=== PATIENT | male | born 1990 | race Caucasian/White ===

== ENCOUNTER 2020-02-04 16:22 | Outpatient (REF) | payer OTHER, SELFPAY | END 2020-02-04 16:23 | disposition home or self-care (01) | LOC: HO.LAB 16:22 | PROVIDERS: PCP Internal Medicine; Visit Provider Internal Medicine | DX: Z20.828 Contact with and (suspected) exposure to other viral communicable diseases (principal) | CPT/HCPCS: C9803; U0003 ==

== ENCOUNTER 2022-11-12 10:27 | Outpatient (AMB) | payer OTHER, SELFPAY ==
--- NOTE | 2022-11-12 10:31 | A.OFFPC_ITS ---
Vital Signs 11/12/22 10:42 Height 5 ft 6.5 in Weight 143 lb 4 oz BMI 22.8 BP 100/66 Blood Pressure Location Lt brachial Position Sitting Pulse 85 Pulse Source Pulse Oximeter Pulse Oximetry (%) 97 Oxygen Delivery Method Room Air Intake Visit Reasons: Re-Establish Care ( Depression medication) Intake Note: Patient is here today to re-establish care. Requesting for depression medication Land Surveyor Required: No School Physical Therapist: Not Required per policy Accompanied by: Self / Same As Patient Allergies No Known Allergies Allergy (Verified 11/12/22 10:58) Medication List - Last Reconciled 11/12/22 by Arben Garza PA-C sertraline 100 mg PO DAILY 90 days Tobacco use date assessed: 11/12/22 Dental Screening Dental Screen Date: 11/12/22 Did you have a dental visit in the last 12 months?: No Did you have a dental problem in the last 6 months where you did not have access to dental care?: No Was dental information given to patient?: No HPI Re-Establish Care ( Depression medication) HPI Details Patient is a 32-year-old male here today to reestablish care. Patient has a past medical history significant for generalized anxiety disorder major depressive disorder. Was on sertraline 100 mg with good effect on his mental health. [facility] Surgical History History of hernia surgery Family History Other Mental health disorder Substance use disorder Social History Housing: Apartment Alcohol intake: never Patient Tobacco Use Status: Current everyday Tobacco user Tobacco use type: Cigarette Cigarette Packs Per Day: 0.5 Cigarettes Per Day: 10 e-Cigarette/Vaping Use: Never Used Second Hand Smoke Exposure: Yes service: No Current occupational status: employed Current occupation: [employer] Cognitive needs: No Hearing needs: No Vision needs: Yes (glasses) Questionnaire PHQ-9 Over the last 2 weeks, how often have you been bothered by any of the following problems? 1. Little interest or pleasure in doing things: more than half the days 2. Feeling down, depressed, or hopeless: more than half the days 3. Trouble falling or staying asleep, or sleeping too much: nearly every day 4. Feeling tired or having little energy: more than half the days 5. Poor appetite or overeating: several days 6. Feeling bad about yourself - or that you are a failure or have let yourself or your family down: several days 7. Trouble concentrating on things, such as reading the newspaper or watching television: several days 8. Moving or speaking so slowly that other people could have noticed. Or the opposite - being so fidgety or restless that you have been moving around a lot more than usual: several days 9. Thoughts that you would be better off or of hurting yourself in some way: several days Total score: 14 Depression Screening Interpretation: Positive 81410 - PHQ-9 Billing: Yes Source: Developed by Drs. Bhaskar Dawkins, Radha Polanco, Earle Callahan and colleagues, with an educational noemi from [employer]. Thrive Questionnaire Date Thrive assessed: 11/12/22 I am a: Patient What is your living situation today?: I have a steady place to live Within the past 12 months, did the food you bought not last and you didn't have the money to get more?: Never true Within the past 12 months, did you worry whether your food would run out before you got money to buy more?: Never true Do you have trouble paying for medicines?: No Do you have trouble getting transportation to medical appointments?: No Do you have trouble paying your heating and electricity bill?: No Do you have trouble taking care of your child, family member or friend?: No Do you have trouble with day-to-day activities such as bathing, preparing meals, shopping, managing finances, etc.?: No Are you currently unemployed and looking for a job?: No Are you interested in more education?: No Currently or been in a relationship where the following occur: no concerns reported AUDIT C Alcohol Use Questionnaire (AUDIT-C) 1. How often do you have a drink containing alcohol?: Never Total Score: 0 PAIGE-7 AMB Questionnaire PAIGE-7 Date PAIGE - 7 assessed: 11/12/22 Feeling nervous, anxious, or on edge: 2 = More than half the days Not being able to stop or control worryin = More than half the days Worrying too much about different things: 2 = More than half the days Trouble relaxin = Several days Being so restless that it is hard to sit still: 1 = Several days Becoming easily annoyed or irritable: 1 = Several days Feeling afraid as if something awful might happen: 2 = More than half the days Total PAIGE-7 score (0-4 normal; 5-9 mild; 10-14 moderate; 15-21 severe): 11 Source: Developed by Drs. Bhaskar Dawkins, Radha Polanco, Earle Callahan and colleagues, with an educational noemi from [employer]. PAIGE-7 Assessment Billing PAIGE-7 Assessment Tool: PAIGE-7 Assessment 30893 Physical exam (Primary Care) Vital Signs: Last Vital Signs Pulse 85 11/12/22 10:42 BP 100/66 11/12/22 10:42 Pulse Ox 97 11/12/22 10:42 Oxygen Delivery Method Room Air 11/12/22 10:42 BMI result Body Mass Index 22.8 Tobacco/Smoking Status: Tobacco use Status Tobacco use date assessed 11/12/22 11/12/22 10:33 Patient Tobacco Use Status Current everyday Tobacco 11/12/22 10:51 Tobacco use type Cigarette 11/12/22 10:51 e-Cigarette/Vaping Use Never Used 11/12/22 10:47 Are you ready to quit: No Tobacco cessation counseling provided: Yes Relapse Prevention: discussed the importance of a supportive environment, discussed negative mood or depression after quitting and discussed dietary, exercise and/or lifestyle changes Number of minutes spent counselin CPT code: 95120 - 4-10 Minutes PHQ-9: PHQ-9 Score PHQ-9: Total score 14 11/12/22 10:51 Depression Screening Interpretation: Positive Thrive Assessment: Date of Thrive Assessment Date Thrive assessed 11/12/22 11/12/22 10:33 Currently or been in a relationship where the following occur: no concerns reported Assessment and Plan Assessment & Plan (1) PAIGE (generalized anxiety disorder): Code(s): F41.1 - Generalized anxiety disorder Plan: Patient's PAIGE-7 score positive for moderate anxiety which has been existing condition for him. He also suffers from major depressive disorder. He would like to get set up with a mental health therapist and perhaps a psychiatrist in the near future. He would like to restart SSRI therapy. (2) Screening for diabetes mellitus (DM): Code(s): Z13.1 - Encounter for screening for diabetes mellitus (3) MDD (major depressive disorder), recurrent episode, moderate: Code(s): F33.1 - Major depressive disorder, recurrent, moderate Plan: Patient's PHQ-9 score positive for moderate depression which has been existing condition for him. He would like to restart SSRI therapy and be established with a mental health therapist. (4) Tobacco dependence: Code(s): F17.200 - Nicotine dependence, unspecified, uncomplicated Plan: Patient does understand he needs to quit smoking. Offered nicotine replacement though declines. Will work on cutting down his smoking on his own. Orders: Orders Comprehensive [place]. Panel Fast Today Z13.1 - Encounter for screening for diabetes mellitus Referrals Counseling Referral F41.1 - Generalized anxiety disorder Medications: Refilled sertraline 100 mg PO DAILY 90 days 90 tabs 2RF F41.1 - Generalized anxiety disorder Coding Level of Care Code Est Pt Level 4 (35507) Diagnoses PAIGE (generalized anxiety disorder) F41.1 Screening for diabetes mellitus (DM) Z13.1 MDD (major depressive disorder), recurrent episode, moderate F33.1 Tobacco dependence F17.200 Additional Codes PAIGE-7 Assessment Billing - PAIGE-7 Assessment Tool: PAIGE-7 Assessment 06693 ([id number]) Vital Signs *Quality* - CPT code: 42997 - 4-10 Minutes ([id number])
[2022-11-12 10:42] VITALS: BP 100/66; PULSE 85; O2SAT 97; BMI 22.8
== END 2022-11-12 11:21 | disposition home or self-care (01) ==
PROVIDERS: PCP Physician Assistant; Visit Provider Physician Assistant
DX: F41.1 Generalized anxiety disorder (principal); Z13.1 Encounter for screening for diabetes mellitus; F33.1 Major depressive disorder, recurrent, moderate; F17.210 Nicotine dependence, cigarettes, uncomplicated
CPT/HCPCS: 99214; 99406

== ENCOUNTER 2023-04-22 10:20 | Outpatient (AMB) | payer OTHER, SELFPAY ==
--- NOTE | 2023-04-22 10:16 | A.OFFPC_ITS ---
Intake Visit Reasons: 5 month f/u Package Maker Required: No Accompanied by: Self / Same As Patient Allergies No Known Allergies Allergy (Verified 04/22/23 10:43) Medication List - Last Reconciled 04/22/23 by Arben Garza PA-C sertraline 100 mg PO DAILY 90 days Tobacco use date assessed: 04/22/23 Dental Screening Dental Screen Date: 04/22/23 Did you have a dental visit in the last 12 months?: No Did you have a dental problem in the last 6 months where you did not have access to dental care?: No Was dental information given to patient?: Patient has dentist HPI 5 month f/u HPI Details Patient is a 32-year-old male being evaluated today via telephone only. Patient has a past medical history significant for major depressive disorder, generalized anxiety disorder and tobacco dependency. .. Major depressive disorder: Has been better as of late without any medication. Still has the sertraline available to him and is considering taking the medication. He is still also considering mental health therapy. Anxiety: Same Concerns--> has been having some wrist soreness and crepitus. No reports of major trauma to his wrist.. This could be attributed to his work. He will try to stabilize with a wrist splint at night and use of anti-inflammatory as needed. .. Tobacco dependency: Still admits to smoking a pack a day. He does understand he needs to quit and is somewhat interested in starting nicotine patches. [facility] Surgical History History of hernia surgery Family History Other Mental health disorder Substance use disorder Social History Housing: Apartment Alcohol intake: never Patient Tobacco Use Status: Current everyday Tobacco user Tobacco use type: Cigarette Cigarette Packs Per Day: 1 Cigarettes Per Day: 20 e-Cigarette/Vaping Use: Never Used Second Hand Smoke Exposure: Yes service: No Current occupational status: employed Current occupation: [employer] [place] Cognitive needs: No Hearing needs: No Vision needs: Yes (glasses) Questionnaire PHQ-9 Over the last 2 weeks, how often have you been bothered by any of the following problems? 1. Little interest or pleasure in doing things: not at all 2. Feeling down, depressed, or hopeless: not at all 3. Trouble falling or staying asleep, or sleeping too much: not at all 4. Feeling tired or having little energy: not at all 5. Poor appetite or overeating: not at all 6. Feeling bad about yourself - or that you are a failure or have let yourself or your family down: not at all 7. Trouble concentrating on things, such as reading the newspaper or watching television: not at all 8. Moving or speaking so slowly that other people could have noticed. Or the opposite - being so fidgety or restless that you have been moving around a lot more than usual: not at all 9. Thoughts that you would be better off or of hurting yourself in some way: not at all Total score: 0 Depression Screening Interpretation: Negative Depression Screening Done: Yes 61101 - PHQ-9 Billing: Yes Source: Developed by Drs. Bhaskar Dawkins, Radha Polanco, Earle Callahan and colleagues, with an educational noemi from [employer]. Thrive Questionnaire Date Thrive assessed: 04/22/23 I am a: Patient What is your living situation today?: I have a steady place to live Within the past 12 months, did the food you bought not last and you didn't have the money to get more?: Never true Within the past 12 months, did you worry whether your food would run out before you got money to buy more?: Never true Do you have trouble paying for medicines?: No Do you have trouble getting transportation to medical appointments?: No Do you have trouble paying your heating and electricity bill?: No Do you have trouble taking care of your child, family member or friend?: No Do you have trouble with day-to-day activities such as bathing, preparing meals, shopping, managing finances, etc.?: No Are you currently unemployed and looking for a job?: No Are you interested in more education?: No Please select the resources that you would like help with: None Currently or been in a relationship where the following occur: no concerns reported THRIVE Score: 0 AUDIT C Alcohol Use Questionnaire (AUDIT-C) 1. How often do you have a drink containing alcohol?: Monthly or less 2. How many drinks containing alcohol do you have on a typical day when you are drinking?: 1 or 2 3. How often do you have six or more drinks on one occasion?: Never Total Score: 1 PAIGE-7 AMB Questionnaire PAIGE-7 Date PAIGE - 7 assessed: 04/22/23 Feeling nervous, anxious, or on edge: 0 = Not at all Not being able to stop or control worryin = Not at all Worrying too much about different things: 0 = Not at all Trouble relaxin = Not at all Being so restless that it is hard to sit still: 0 = Not at all Becoming easily annoyed or irritable: 0 = Not at all Feeling afraid as if something awful might happen: 0 = Not at all Total PAIGE-7 score (0-4 normal; 5-9 mild; 10-14 moderate; 15-21 severe): 0 Source: Developed by Drs. Bhaskar Dawkins, Radha Polanco, Earle Callahan and colleagues, with an educational noemi from [employer]. PAIGE-7 Assessment Billing PAIGE-7 Assessment Tool: PAIGE-7 Assessment 20997 Review of Systems Const Denies headache(s) Eyes Denies loss of vision ENT Denies vertigo, Denies dizziness, Denies headache(s) and Denies sore throat Card Denies chest pain, Denies leg edema and Denies lightheadedness Resp Denies cough, Denies hemoptysis and Denies wheezing GI Denies abdominal pain, Denies melena, Denies constipation, Denies diarrhea and Denies vomiting Denies dysuria, Denies urinary frequency and Denies urinary urgency Musc Denies arthralgias, Denies joint swelling, Denies numbness and Denies tingling Neuro Denies behavioral changes, Denies vertigo, Denies dizziness, Denies headache(s), Denies loss of vision, Denies memory loss, Denies numbness and Denies tingling Psych Denies anxiety, Denies behavioral changes, Denies depression, Denies memory loss and Denies panic attacks Nader/Lymph Denies easy bleeding and Denies easy bruising Aller/Immun Denies wheezing Physical exam (Primary Care) Tobacco/Smoking Status: Tobacco use Status Tobacco use date assessed 04/22/23 04/22/23 10:19 Patient Tobacco Use Status Current everyday Tobacco 04/22/23 10:19 Tobacco use type Cigarette 04/22/23 10:19 e-Cigarette/Vaping Use Never Used 04/22/23 10:19 Are you ready to quit: No Tobacco cessation counseling provided: Yes Items discussed: Nicotine replacement and [employer] Relapse Prevention: discussed the importance of a supportive environment, discussed negative mood or depression after quitting, weight gain after smoking is common and discussed dietary, exercise and/or lifestyle changes Number of minutes spent counselin CPT code: 33270 - 4-10 Minutes PHQ-9: PHQ-9 Score PHQ-9: Total score 0 04/22/23 10:21 Depression Screening Interpretation: Negative Thrive Assessment: Date of Thrive Assessment Date Thrive assessed 04/22/23 04/22/23 10:19 Currently or been in a relationship where the following occur: no concerns reported Telehealth Telehealth Location of provider rendering services: practice address Location of patient: address on file Patient Identification confirmed using: Name, : Yes Telehealth method: voice only Patient verbally consented to treatment: Yes Patient verbally consented to billing insurance company: Yes Patient informed of any privacy concerns related to visit: Yes Minutes spent on Phone/Video with Pt.: 11 Assessment and Plan Assessment & Plan (1) PAIGE (generalized anxiety disorder): Code(s): F41.1 - Generalized anxiety disorder Plan: Patient's PAIGE-7 score 0, anxiety and depression have been better as of late. He has not taking any medication at this time and is still considering. (2) MDD (major depressive disorder), recurrent episode, moderate: Code(s): F33.1 - Major depressive disorder, recurrent, moderate Plan: Patient's PHQ-9 score 0, he reports his depression has been better as of late. He has not taking any medication and is still considering speaking with a mental therapist. (3) Tobacco dependence: Code(s): F17.200 - Nicotine dependence, unspecified, uncomplicated Plan: Patient does understand he needs to quit smoking. He is now willing to try nicotine patches. Will also work on cutting down his smoking on his own. Medications: New nicotine 1 patch transdermal DAILY 14 days 14 ea 0RF F17.200 - Nicotine dependence, unspecified, uncomplicated nicotine 1 patch transdermal Q24H 14 days 14 ea 0RF F17.200 - Nicotine dependence, unspecified, uncomplicated nicotine 1 patch transdermal DAILY 14 days 14 ea 0RF F17.200 - Nicotine dependence, unspecified, uncomplicated Coding Level of Care Code Tele Est Pt Level 4 (48150) Diagnoses PAIGE (generalized anxiety disorder) F41.1 MDD (major depressive disorder), recurrent episode, moderate F33.1 Tobacco dependence F17.200 Additional Codes PAIGE-7 Assessment Billing - PAIGE-7 Assessment Tool: PAIGE-7 Assessment 76551 ([id number]) Vital Signs *Quality* - CPT code: 42581 - 4-10 Minutes ([id number])
== END 2023-04-22 11:16 | disposition home or self-care (01) ==
LOC: HO.HMGH 10:20
PROVIDERS: PCP Physician Assistant; Visit Provider Physician Assistant
DX: F41.1 Generalized anxiety disorder (principal); F33.1 Major depressive disorder, recurrent, moderate; F17.200 Nicotine dependence, unspecified, uncomplicated
CPT/HCPCS: 99214

== ENCOUNTER 2023-10-13 14:54 | Outpatient (AMB) | payer OTHER, SELFPAY ==
[2023-10-13 15:03] VITALS: BP 126/76; PULSE 87; O2SAT 99; BMI 19.9
--- NOTE | 2023-10-13 15:03 | MHC.PC.OV ---
Vital Signs 10/13/23 15:03 Height 5 ft 6.5 in Weight 125 lb 2 oz BMI 19.9 BP 126/76 Blood Pressure Location Lt brachial Position Sitting Pulse 87 Pulse Source Pulse Oximeter Pulse Oximetry (%) 99 Oxygen Delivery Method Room Air Intake Visit Reasons: PE Intake Note: Patient is here today for a physical. 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: No Accompanied by: Self / Same As Patient Allergies No Known Allergies Allergy (Verified 10/13/23 15:22) Medication List - Last Reconciled 10/13/23 by Arben Garza PA-C nicotine 1 patch transdermal DAILY 14 days nicotine 1 patch transdermal Q24H 14 days nicotine 1 patch transdermal DAILY 14 days sertraline 100 mg PO DAILY 90 days Tobacco use date assessed: 04/22/23 Dental Screening Dental Screen Date: 04/22/23 HPI PE HPI Details Patient is a 33-year-old male here today for routine annual physical Patient has a past medical history significant for major depressive disorder, generalized anxiety disorder and tobacco dependency. .. Major depressive disorder: Has been better as of late without any medication. Still has the sertraline available to him and is considering taking the medication. He is still also considering mental health therapy. Anxiety: Same Weight loss: Has noted weight loss since last office visit. He attributes this to his dental issue and lack of appetite as of late. .. Tobacco dependency: Still admits to smoking , though much lower amounts(admits to half a pack of cigarettes per). He does understand he needs to quit and is somewhat interested in starting nicotine patches. Vaccines: Up-to-date with COVID vaccine, tetanus vaccine. Considering pneumonia vaccine [facility] Surgical History History of hernia surgery Family History Other Mental health disorder Substance use disorder Social History (Updated 10/13/23 @ 15:27 by Arben Garza PA-C) Housing: Apartment Alcohol intake: never Patient Tobacco Use Status: Current everyday Tobacco user Tobacco use type: Cigarette Cigarettes Per Day: 10 e-Cigarette/Vaping Use: Never Used Second Hand Smoke Exposure: Yes service: No Current occupational status: employed Current occupation: [employer] Cognitive needs: No Hearing needs: No Vision needs: Yes (glasses) Questionnaire Thrive Questionnaire Date Thrive assessed: 04/22/23 PAIGE-7 AMB Questionnaire PAIGE-7 Date PAIGE - 7 assessed: 04/22/23 Source: Developed by Drs. Bhaskar Dawkins, Radha Polanco, Earle Callahan and colleagues, with an educational noemi from [employer]. Review of Systems Const Denies body aches, Denies chills, Denies excessive sweating, Denies fatigue, Denies fever(s) and Denies headache(s) Eyes Denies blurry vision ENT Denies dysphagia, Denies vertigo, Denies dizziness, Denies headache(s), Denies hearing loss and Denies tinnitus Card Denies chest pain, Denies chest pain with activity, Denies syncope, Denies irregular heart rhythm and Denies dyspnea Resp Denies chest congestion, Denies cough, Denies hemoptysis, Denies dyspnea and Denies wheezing GI Denies abdominal pain, Denies melena, Denies hematochezia, Denies coffee ground emesis, Denies dysphagia, Denies diarrhea, Denies nausea and Denies vomiting Denies difficulty urinating, Denies dysuria, Denies urinary frequency, Denies urinary hesitancy and Denies urinary urgency Musc Denies arthralgias, Denies limited range of motion, Denies muscle cramps and Denies muscle weakness Skin/Breast Denies rash and Denies skin ulcer Neuro Denies Abnormal speech present, Denies confusion, Denies vertigo, Denies dizziness, Denies syncope, Denies headache(s), Denies memory loss and Denies seizure-like activity Psych Denies anxiety, Denies confusion, Denies depression, Denies memory loss, Denies panic attacks and Denies paranoia Endo Denies excessive sweating, Denies fatigue, Denies flushing, Denies polydipsia and Denies polyuria Aller/Immun Denies wheezing Physical exam (Primary Care) Vital Signs: Last Vital Signs Pulse 87 10/13/23 15:03 BP 126/76 10/13/23 15:03 Pulse Ox 99 10/13/23 15:03 Oxygen Delivery Method Room Air 10/13/23 15:03 BMI result Body Mass Index 19.9 Tobacco/Smoking Status: Tobacco use Status Tobacco use date assessed 04/22/23 10/13/23 15:03 Patient Tobacco Use Status Current everyday Tobacco 10/13/23 15:03 Tobacco use type Cigarette 10/13/23 15:03 e-Cigarette/Vaping Use Never Used 10/13/23 15:03 Are you ready to quit: No Tobacco cessation counseling provided: Yes Items discussed: Nicotine replacement Relapse Prevention: discussed the importance of a supportive environment, discussed negative mood or depression after quitting, weight gain after smoking is common and discussed dietary, exercise and/or lifestyle changes Number of minutes spent counselin CPT code: 35723 - 4-10 Minutes Thrive Assessment: Date of Thrive Assessment Date Thrive assessed 04/22/23 10/13/23 15:03 Const General: cooperative, comfortable, no acute distress, alert and awake; No confusion Orientation/consciousness: oriented to person, oriented to place, patient oriented x3 and No confusion HENMT Head: Yes normocephalic Ears: external ears normal and TM's normal bilaterally Face and sinus: No sinus tenderness Mouth: Normal oral and palatal mucosa present and tongue normal Teeth and gingiva: dentition normal and gingiva normal Throat: Yes posterior oropharynx normal, Yes tonsils normal and Yes uvula midline Eyes Conjunctivae: conjunctivae normal Sclerae: sclerae normal Pupils: Equal, round and reactive pupils present EOM: EOMs intact bilaterally Direct Ophthalmoscopy: No no photophobia Neck Neck: Yes no lymphadenopathy, No tender and Yes no JVD Thyroid: Thyroid normal Carotids: no bruits Chest Chest palpation & inspection: no tenderness Resp Effort & Inspection: normal respiratory effort, no audible wheezes, not labored and no stridor Auscultation: no crackles, no rales, no rhonchi and no wheezes Cardio Jugular venous distension: no JVD Rate: regular rate, not bradycardic and not tachycardic Rhythm: regular rhythm Bruits: no carotid bruits Peripheral pulses: Peripheral pulses 2+ throughout GI Inspection: Yes normal to inspection, No abdominal wall ecchymosis and No visible herniation Palpation (GI): Soft to palpation, nontender, no guarding, not rigid and No hepatosplenomegaly present Auscultation: normoactive bowel sounds General: Yes no CVA tenderness Back/Spine/Pelvis Back: no CVA tenderness and No back tenderness Cervical Spine: cervical ROM normal Thoracic/Lumbar Spine: thoracic and lumbar spine normal to inspection, straight leg raise negative bilaterally, No thoraco-lumbar ROM limited and No lumbar spinal tenderness Skin Lesions: no lesions Rashes: no rashes Wounds: no wounds Neuro General: oriented to person, oriented to place, patient oriented x3, CN's II-XI intact bilaterally and No confusion Cranial nerves: Yes Equal, round and reactive pupils present and Yes Normal accommodation reflex present Cognition (Neuro): normal cognition Speech: No Abnormal speech present Gait exam (Neuro): Normal gait present Motor exam (neuro): 5/5 motor strength present throughout Extrem Right upper extremity: full ROM; no cyanosis Left upper extremity: full ROM; no cyanosis Right lower extremity: no edema Left lower extremity: no edema Psych Appearance: grossly normal Mental Status: mental status grossly normal Affect: normal affect Attitude: cooperative Thought process: Normal thought process present Assessment and Plan Assessment & Plan (1) Annual physical exam: Code(s): Z00.00 - Encounter for general adult medical examination without abnormal findings (2) APIGE (generalized anxiety disorder): Code(s): F41.1 - Generalized anxiety disorder Plan: Patient's PAIGE-7 score 0, anxiety and depression have been better as of late. He has not taking any medication at this time and is still considering. (3) Tobacco dependence: Code(s): F17.200 - Nicotine dependence, unspecified, uncomplicated Plan: Patient does understand he needs to quit smoking. He has not tried a nicotine replacement. He reports he has cut down to half a pack cigarettes per day. Medications: Discontinued sertraline Discontinued Reason: Doctor's Order 100 mg PO DAILY 90 days 90 tabs 2RF F41.1 - Generalized anxiety disorder Patient Instructions: Goal: COMPLETELY QUIT SMOKING Barriers: Availability of cigarettes Coding Level of Care Code Est Pt Prev Care 18-39y(28830) Diagnoses Annual physical exam Z00.00 PAIGE (generalized anxiety disorder) F41.1 Tobacco dependence F17.200 Additional Codes Vital Signs *Quality* - CPT code: 89761 - 4-10 Minutes ([id number])
== END 2023-10-13 15:39 | disposition home or self-care (01) ==
PROVIDERS: PCP Physician Assistant; Visit Provider Physician Assistant
DX: Z00.00 Encounter for general adult medical examination without abnormal findings (principal); F41.1 Generalized anxiety disorder; F17.200 Nicotine dependence, unspecified, uncomplicated
CPT/HCPCS: 99395; 99406

== ENCOUNTER 2024-05-27 10:29 | Outpatient (AMB) | payer OTHER, SELFPAY ==
[2024-05-27 10:59] VITALS: BP 104/60; PULSE 752; TEMP 36.4; O2SAT 97; BMI 22.4
--- NOTE | 2024-05-27 10:59 | MHC.PC.OV ---
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 Accompanied by: Self / Same As Patient Allergies No Known Allergies Allergy (Verified 05/27/24 11:13) Medication List - Last Reconciled 05/27/24 by Arben Garza PA-C nicotine 1 patch transdermal DAILY 14 days nicotine 1 patch transdermal Q24H 14 days nicotine 1 patch transdermal DAILY 14 days Tobacco use date assessed: 05/27/24 Dental Screening Dental Screen Date: 05/27/24 Did you have a dental visit in the last 12 months?: Yes Did you have a dental problem in the last 6 months where you did not have access to dental care?: Yes Was dental information given to patient?: Patient has dentist HPI f/u smoking cessation - weightkris HPI Details Patient is a 33-year-old male here today for a follow-up visit.. Patient has a past medical history significant for major depressive disorder, generalized anxiety disorder and tobacco dependency. .. Major depressive disorder: Has been better as of late without any medication. Feels most of his anxiety and depression and seasonal affective disorder. .. Tobacco dependency: Still admits to smoking , though much lower amounts(admits to half a pack of cigarettes per). He does understand he needs to quit and is somewhat interested in starting nicotine patches. [facility] Surgical History History of hernia surgery Family History Other Mental health disorder Substance use disorder Social History Housing: Apartment Alcohol intake: never Patient Tobacco Use Status: Current everyday Tobacco user Tobacco use type: Cigarette Cigarettes Per Day: 10 e-Cigarette/Vaping Use: Never Used Second Hand Smoke Exposure: Yes service: No Current occupational status: employed Current occupation: [employer] Cognitive needs: No Hearing needs: No Vision needs: Yes (glasses) Questionnaire PHQ-9 Over the last 2 weeks, how often have you been bothered by any of the following problems? 1. Little interest or pleasure in doing things: not at all 2. Feeling down, depressed, or hopeless: not at all 3. Trouble falling or staying asleep, or sleeping too much: not at all 4. Feeling tired or having little energy: not at all 5. Poor appetite or overeating: not at all 6. Feeling bad about yourself - or that you are a failure or have let yourself or your family down: not at all 7. Trouble concentrating on things, such as reading the newspaper or watching television: not at all 8. Moving or speaking so slowly that other people could have noticed. Or the opposite - being so fidgety or restless that you have been moving around a lot more than usual: not at all 9. Thoughts that you would be better off or of hurting yourself in some way: not at all Total score: 0 Depression Screening Interpretation: Negative Depression Screening Done: Yes 94018 - PHQ-9 Billing: Yes Source: Developed by Drs. Bhaskar Dawkins, Rdaha Polanco, Earle Callahan and colleagues, with an educational noemi from [employer]. Thrive Questionnaire Date Thrive assessed: 05/27/24 I am a: Patient What is your living situation today?: I have a steady place to live Within the past 12 months, did the food you bought not last and you didn't have the money to get more?: Never true Within the past 12 months, did you worry whether your food would run out before you got money to buy more?: Never true Do you have trouble paying for medicines?: No Do you have trouble getting transportation to medical appointments?: No Do you have trouble paying your heating and electricity bill?: No Do you have trouble taking care of your child, family member or friend?: No Do you have trouble with day-to-day activities such as bathing, preparing meals, shopping, managing finances, etc.?: No Are you currently unemployed and looking for a job?: No Are you interested in more education?: No Please select the resources that you would like help with: None Currently or been in a relationship where the following occur: No concerns reported THRIVE Score: 0 AUDIT C Alcohol Use Questionnaire (AUDIT-C) 1. How often do you have a drink containing alcohol?: Never 3. How often do you have six or more drinks on one occasion?: Never Total Score: 0 PAIGE-7 AMB Questionnaire PAIGE-7 Date PAIGE - 7 assessed: 05/27/24 Feeling nervous, anxious, or on edge: 0 = Not at all Not being able to stop or control worryin = Not at all Worrying too much about different things: 0 = Not at all Trouble relaxin = Not at all Being so restless that it is hard to sit still: 0 = Not at all Becoming easily annoyed or irritable: 0 = Not at all Feeling afraid as if something awful might happen: 0 = Not at all Total PAIGE-7 score (0-4 normal; 5-9 mild; 10-14 moderate; 15-21 severe): 0 Source: Developed by Drs. Bhaskar Dawkins, Radha Polanco, Earle Callahan and colleagues, with an educational noemi from [employer]. PAIGE-7 Assessment Billing PAIGE-7 Assessment Tool: PAIGE-7 Assessment 02079 Review of Systems Const Denies headache(s) Eyes Denies loss of vision ENT Denies vertigo, Denies dizziness, Denies headache(s) and Denies sore throat Card Denies chest pain, Denies leg edema and Denies lightheadedness Resp Denies cough, Denies hemoptysis and Denies wheezing GI Denies abdominal pain, Denies melena, Denies constipation, Denies diarrhea and Denies vomiting Denies dysuria, Denies urinary frequency and Denies urinary urgency Musc Denies arthralgias, Denies joint swelling, Denies numbness and Denies tingling Neuro Denies Abnormal speech present, Denies behavioral changes, Denies vertigo, Denies dizziness, Denies headache(s), Denies loss of vision, Denies memory loss, Denies numbness and Denies tingling Psych Denies anxiety, Denies behavioral changes, Denies depression, Denies memory loss and Denies panic attacks Nader/Lymph Denies easy bleeding and Denies easy bruising Aller/Immun Denies wheezing Physical exam (Primary Care) Vital Signs: Last Vital Signs Temp 97.5 F 05/27/24 10:59 Pulse 752 H 05/27/24 10:59 BP 104/60 05/27/24 10:59 Pulse Ox 97 05/27/24 10:59 Oxygen Delivery Method Room Air 05/27/24 10:59 BMI result Body Mass Index 22.4 Tobacco/Smoking Status: Tobacco use Status Tobacco use date assessed 05/27/24 05/27/24 11:03 Patient Tobacco Use Status Current everyday Tobacco 05/27/24 11:03 Tobacco use type Cigarette 05/27/24 11:03 e-Cigarette/Vaping Use Never Used 05/27/24 11:03 Are you ready to quit: No Tobacco cessation counseling provided: Yes Items discussed: Nicotine replacement Relapse Prevention: discussed the importance of a supportive environment, discussed negative mood or depression after quitting, weight gain after smoking is common and discussed dietary, exercise and/or lifestyle changes Number of minutes spent counselin CPT code: 06065 - 4-10 Minutes PHQ-9: PHQ-9 Score PHQ-9: Total score 0 05/27/24 11:03 Depression Screening Interpretation: Negative Thrive Assessment: Date of Thrive Assessment Date Thrive assessed 05/27/24 05/27/24 11:03 Currently or been in a relationship where the following occur: No concerns reported Const General: healthy appearing, no acute distress, alert and awake Nutritional Appearance: well nourished Orientation/consciousness: oriented to person, oriented to place and oriented to time HENMT Ears: TM's normal bilaterally General nose exam: Normal nasal mucous membranes and turbinates present Eyes Conjunctivae: conjunctivae normal Sclerae: sclerae normal Pupils: Equal, round and reactive pupils present Neck Neck: Yes no lymphadenopathy and Yes no JVD Thyroid: Thyroid normal Carotids: no bruits Resp Effort & Inspection: normal respiratory effort and not tachypneic Auscultation: no crackles, no rales, no rhonchi and no wheezes Cardio Rate: regular rate Rhythm: regular rhythm Heart sounds: no murmurs and normal S1 and S2 GI Palpation (GI): Soft to palpation, nontender, no hepatomegaly and no splenomegaly Auscultation: normal bowel sounds Skin General skin exam: no rashes or lesions noted and dry skin Neuro General: oriented to person, oriented to place and oriented to time Cranial nerves: Yes Equal, round and reactive pupils present Speech: No Abnormal speech present Gait exam (Neuro): Normal gait present Motor exam (neuro): no tremor noted Extrem Right upper extremity: full ROM Left upper extremity: full ROM Right lower extremity: full ROM; no edema Left lower extremity: full ROM; no edema Psych Mental Status: mental status grossly normal Speech and movement: Normal speech and movement present Affect: normal affect Attitude: cooperative Thought process: Normal thought process present Coding Level of Care Code Est Pt Level 4 (84474) Diagnoses MDD (major depressive disorder), recurrent episode, moderate F33.1 Tobacco dependence F17.200 PAIGE (generalized anxiety disorder) F41.1 Additional Codes PAIGE-7 Assessment Billing - PAIGE-7 Assessment Tool: PAIGE-7 Assessment 63772 ([id number]) PHQ-9 - 63903 - PHQ-9 Billing: Yes ([id number]) Vital Signs *Quality* - CPT code: 97083 - 4-10 Minutes ([id number]) Assessment & Plan Assessment & Plan (1) MDD (major depressive disorder), recurrent episode, moderate: Code(s): F33.1 - Major depressive disorder, recurrent, moderate Category: Medical Plan: Patient's PHQ-9 score 0, had reports his depression has been better he feels his depression is mostly seasonal and some financial stress. He is not interested in mental health therapy or medications at this time. (2) Tobacco dependence: Code(s): F17.200 - Nicotine dependence, unspecified, uncomplicated Category: Medical Plan: He does report reducing his smoking, still smoking a few cigarettes per day. He would like to have nicotine patches available to in case he decides he would like to use them. (3) PAIGE (generalized anxiety disorder): Code(s): F41.1 - Generalized anxiety disorder Category: Medical Plan: Patient's PAIGE-7 score 0, his anxiety has been a bit better though has stress in his personal life. Orders: Orders Comprehensive [place]. Panel Fast Today Z13.1 - Encounter for screening for diabetes mellitus Complete Blood Count no Diff Today Z13.1 - Encounter for screening for diabetes mellitus Medications: Refilled nicotine 1 patch transdermal DAILY 14 days 14 ea 0RF F17.200 - Nicotine dependence, unspecified, uncomplicated nicotine 1 patch transdermal Q24H 14 days 14 ea 0RF F17.200 - Nicotine dependence, unspecified, uncomplicated nicotine 1 patch transdermal DAILY 14 days 14 ea 0RF F17.200 - Nicotine dependence, unspecified, uncomplicated
== END 2024-05-27 11:26 | disposition home or self-care (01) ==
LOC: HO.HMCH 10:29
PROVIDERS: PCP Physician Assistant; Visit Provider Physician Assistant
DX: F33.1 Major depressive disorder, recurrent, moderate (principal); F17.200 Nicotine dependence, unspecified, uncomplicated; F41.1 Generalized anxiety disorder

== ENCOUNTER → 2024-05-27 10:29 | Outpatient (BNVA) | payer OTHER, SELFPAY | PROVIDERS: PCP Physician Assistant; Visit Provider Physician Assistant | DX: F33.1 Major depressive disorder, recurrent, moderate (principal); F41.1 Generalized anxiety disorder; F17.200 Nicotine dependence, unspecified, uncomplicated; Z71.6 Tobacco abuse counseling | CPT/HCPCS: 96127; 99212 ==